=== PATIENT | male | born 1960 | race Caucasian/White ===

== ENCOUNTER 2021-01-26 12:18 | Emergency (ER) | payer OTHER ==
[2021-01-26] MEDS ORDERED: HYDROmorphone 1 MG/ML Syringe IM ONE (13:20)
--- NOTE | 2021-01-26 13:24 | EDM.PDOC ---
ED HPI GENERAL MEDICAL PROBLEM - General Chief Complaint: Lower Extremity Injury/Pain Stated Complaint: LEFT SIDE HIP PAIN Time Seen by Provider: 01/26/21 13:01 Source of Information: Reports: Patient, RN Notes Reviewed History Limitations: Reports: No Limitations - History of Present Illness INITIAL COMMENTS - FREE TEXT/NARRATIVE: Patient is a 61-year-old male who presents to the ED for evaluation of his left hip pain. Patient normally attends the [facility] for his medical issues however he notes he has been having left hip pain for about the last month, and he has no traumatic injury that would have caused this injury. He has been going to the chiropractor since then, and he states that the chiropractor seems to think that his tailbone is out of place. Patient notes that the area of pain is very pinpoint, to his left mid buttock, just lateral to the midline. He notes that this area always has pain, but does worsen with movement, when he gets up or sits down. He is not having any numbness or tingling or any pain down his legs. He states that the chiropractor helps for the day, but then the pain just returns. He has been using hydrocodone 10 mg tablets for the pain, with little relief. He tried to call the [facility] for an appointment today however they told him he should come to the ER as he could have a "septic hip". He denies any fevers or chills, cough or shortness of breath, nausea/vomiting/diarrhea. Patient denies any previous surgeries to this hip. Left Hip Pain Score (Numeric/FACES): 6 - Related Data Allergies Allergy/AdvReac Type Severity Reaction Status Date / Time No Known Allergies Allergy Verified 01/26/21 13:05 Home Meds: Home Meds oxyCODONE HCl/Acetaminophen [Oxycodone-Acetaminophen 5-325] 1 each PO Q6H PRN #20 tablet 01/26/21 [Rx] Past Medical History HEENT History: Reports: Impaired Vision Cardiovascular History: Reports: High Cholesterol, Hypertension Respiratory History: Reports: Sleep Apnea Gastrointestinal History: Reports: Chronic Diarrhea Genitourinary History: Reports: Retention, Urinary Psychiatric History: Reports: Addiction Oncologic (Cancer) History: Reports: Colon - Past Surgical History GI Surgical History: Reports: Hernia Repair/Other, Other (See Below) Other GI Surgeries/Procedures: Colon Surgery Social & Family History - Tobacco Use Tobacco Use Status *Q: Never Tobacco User - Caffeine Use Caffeine Use: Reports: Coffee - Recreational Drug Use Recreational Drug Use: Yes Recreational Drug Type: Reports: Marijuana/Hashish Review of Systems - Review of Systems Review Of Systems: Comprehensive ROS is negative, except as noted in HPI. ED EXAM, GENERAL - Physical Exam Exam: See Below Exam Limited By: No Limitations General Appearance: Alert, WD/WN, No Apparent Distress Respiratory/Chest: No Respiratory Distress, Lungs Clear, Normal Breath Sounds, No Accessory Muscle Use, Chest Non-Tender Cardiovascular: Normal Peripheral Pulses, Regular Rate, Rhythm, No Edema Peripheral Pulses: 2+: Radial (L), Radial (R) Extremities: Normal Inspection, Normal Range of Motion, Normal Capillary Refill Neurological: Alert, Oriented, Normal Cognition, No Motor/Sensory Deficits Psychiatric: Normal Affect, Normal Mood Skin Exam: Warm, Dry, Intact, Normal Color, No Rash Course - Vital Signs Last Recorded V/S: Last Vital Signs Temp 97.1 F 01/26/21 13:01 Pulse 63 01/26/21 13:01 Resp 16 01/26/21 13:01 BP 123/64 01/26/21 13:01 Pulse Ox 99 01/26/21 13:01 - Orders/Labs/Meds Meds: Medications Discontinued Medications Generic Name Dose Route Start Last Admin Trade Name Marla PRN Reason Stop Dose Admin Hydromorphone HCl 1 mg 01/26/21 13:20 01/26/21 13:47 Dilaudid IM 01/26/21 13:21 1 mg ONETIME ONE Administration - Re-Assessments/Exams Free Text/Narrative Re-Assessment/Exam: 01/26/21 13:24 Patient presents to the ED for the evaluation of his left hip pain, for today's purposes we will go ahead and get hip and pelvis x-rays, and give the gentleman a 1 mg injection of Dilaudid for pain management. 01/26/21 14:15 The patient's x-rays demonstrate diffuse joint space narrowing within the left hip, sacroiliac joints are normal. No acute fracture or dislocation is seen. It does appear the patient suffering from arthritis causing his pain. I will go ahead and refer him to Dr. Tinsley for the possibility of injections to the site of his pain. He will be sent home with a prescription for oxycodone 5 mg for ongoing pain management as he notes that he was not getting much relief from the [facility]codone 10 mg tablets that [facility]. Departure - Departure Time of Disposition: 14:18 Disposition: Home, Self-Care 01 Condition: Good Clinical Impression: Hip pain, left, Arthritis of left hip - Discharge Information *PRESCRIPTION DRUG MONITORING PROGRAM REVIEWED*: No *COPY OF PRESCRIPTION DRUG MONITORING REPORT IN PATIENT ORLIN: No Instructions: Arthritis, [id number], Pain Medicine Instructions, [id number] Referrals: Kev Tinsley MD [Physician] - 1 Week (for possible left hip injection) Forms: ED Department Discharge Additional Instructions: You were evaluated in the ER today for your left hip pain. X-rays demonstrated that you do have some arthritis in your left hip, which is likely the source of your pain. Recommend you take 625 mg Tylenol or 6 of milligrams ibuprofen every 6 hours as needed for further pain relief, do not exceed 4000 mg Tylenol or 3200 mg ibupr ofen in a 24-hour time span. You were given a prescription for a strong pain medication, oxycodone/acetaminophen 5/325 mg, please take 1 tab every 6 hours as needed for pain not relieved by Tylenol or ibuprofen alone. Please note this medication does contain Tylenol in it, so do not take more than 4000 mg in a 24-hour time span. These medications can be addictive, so please take as few as possible to achieve adequate pain control. These meds can also be quite constipating, recommend that you increase your oral fluid intake and take a stool softener like MiraLAX while taking these medications. Do not drive while taking this medication. You have been given a referral to our global marketing specialist, Dr. Tinsley, for the possibility of hip injections. Due to you being a part of the [facility], you may have to call them and tell them that you received a referral to an global marketing specialist, for hip injections. They might have to do some prior authorizations and order the for this to be covered through the [facility]. Dr. Tinsley's office number is [phone], you may call his office, to set up an appointment to get this scheduled or have the [facility] do it if they need to provide prior authorization. Please do not hesitate to return to the ER at any time if symptoms change or worsen. Sepsis Event Note (ED) - Evaluation Sepsis Screening Result: No Definite Risk - Focused Exam Vital Signs: Vital Signs Temp Pulse Resp BP Pulse Ox 01/26/21 13:01 97.1 F 63 16 123/64 99
--- NOTE | 2021-01-26 13:51 | CR ---
Pelvis and left hip: AP view of the pelvis was obtained as well as AP and frog-leg lateral view of the left hip. Comparison: No previous study is noted. Diffuse joint space narrowing is seen with the left hip. Joint space of the right hip is fairly well preserved. Sacroiliac joints are normal. No acute fracture or dislocation is seen. Impression: 1. Diffuse joint space narrowing with the left hip. 2. No additional abnormality is seen. Diagnostic code #2
== END 2021-01-26 14:38 | disposition home or self-care (01) ==
LOC: JD.ED 12:18
DX: M16.12 Unilateral primary osteoarthritis, left hip (principal); I10 Essential (primary) hypertension
CPT/HCPCS: 73502-26-LT; 73502-LT; 96372; 99283; J1170

== ENCOUNTER 2022-05-10 06:47 | Emergency (ER) | payer OTHER ==
[2022-05-10] MEDS ORDERED: Sodium Chloride 0.9% 10 ML Syringe FLUSH PRN ×2 (07:10→07:13)
[2022-05-10] MEDS ORDERED: HYDROmorphone 1 MG/ML Syringe IVPUSH ONE ×2 (07:11→08:46)
[2022-05-10] MEDS ORDERED: Iopamidol 755 Mg/ML 100 ML Bottle IVPUSH ONE (07:13)
[2022-05-10] MEDS ORDERED: Sodium Chloride 0.9% 100 ML IV SCH (07:15)
== END 2022-05-10 10:13 | disposition home or self-care (01) ==
LOC: JD.ED 06:47
DX: M25.512 Pain in left shoulder (principal); M54.2 Cervicalgia; E78.00 Pure hypercholesterolemia, unspecified; I10 Essential (primary) hypertension; Z79.01 Long term (current) use of anticoagulants; Z87.891 Personal history of nicotine dependence
CPT/HCPCS: 36415; 71275; 80053; 84484; 85025; 85379; 93005; 96361; 96374; 96376; 99285; J1170; J3490; Q9967

== ENCOUNTER 2023-12-17 12:57 | Emergency (ER) | payer OTHER ==
[2023-12-17 13:41] LABS: BASOPHILS ABSOLUTE AUTO 0.1 K/mm3 (0.0-0.2); BASOPHILS PERCENT AUTO 0.7 % (0.0-1.0); EOSINOPHILS ABSOLUTE AUTO 0.2 K/mm3 (0.0-0.4); EOSINOPHILS PERCENT AUTO 1.7 % (0.0-6.0); HEMATOCRIT 44.6 % (42.0-52.0); HEMOGLOBIN 16.2 gm/dl (14.0-18.0); IMMATURE GRAN ABSOLUTE AUTO 0.03 K/mm3 (0.00-0.05); IMMATURE GRAN PERCENT AUTO 0.3 % (0.0-0.4); LYMPHOCYTES ABSOLUTE AUTO 1.9 K/mm3 (1.0-4.8); LYMPHOCYTES PERCENT AUTO 16.5 % (24.0-44.0); MEAN CORPUSCULAR HGB CONC 36.3 g/dl (32.0-36.0); MEAN CORPUSCULAR VOLUME 82.6 fl (83.0-99.0); MONOCYTES ABSOLUTE AUTO 0.9 K/mm3 (0.0-0.8); MONOCYTES PERCENT AUTO 7.7 % (0.0-8.0); NEUTROPHILS ABSOLUTE AUTO 8.2 K/mm3 (1.8-7.7); NEUTROPHILS PERCENT AUTO 73.1 % (41.0-71.0); PLATELET COUNT,PLT 244 K/mm3 (150-400); WHITE BLOOD CELL COUNT,WBC 11.25 K/mm3 (3.9-11.3)
[2023-12-17 14:04] LABS: A/G RATIO 0.8 (1-2); ALANINE AMINOTRANSFERASE,ALT 25 U/L (16-63); ALBUMIN 3.6 g/dl (3.4-5.0); ALKALINE PHOSPHATASE 98 U/L (46-116); ANION GAP 17.1 (5-15); ASPARTATE AMNIOTRANSFERASE,AST 19 U/L (15-37); BLOOD UREA NITROGEN,BUN 20 mg/dL (7-18); BUN/CREATININE RATIO 22.2 (14-18); CALCIUM 9.1 mg/dL (8.5-10.1); CARBON DIOXIDE,CO2 21 mEq/L (21-32); CHLORIDE,CL 98 mEq/L (98-107); CREATININE 0.9 mg/dL (0.7-1.3); ESTIMATED GFR 95 mL/min (>60); GLUCOSE RANDOM 115 mg/dL (70-99); INR 1.07; POTASSIUM,K 4.1 mEq/L (3.5-5.1); PROTEIN TOTAL,TP 7.9 g/dl (6.4-8.2); PROTHROMBIN TIME 11.4 SECONDS (9.7-12.0); SODIUM,NA 132 mEq/L (136-145); TROPONIN I HIGH SENSITIVITY 4 pg/mL (<=76)
[2023-12-17 14:05] LABS: PTT,PARTIAL THROMBOPLSTIN TIME 29.6 SECONDS (21.7-31.4)
== END 2023-12-17 15:34 | disposition home or self-care (01) ==
LOC: JD.ED 12:57
DX: H81.4 Vertigo of central origin (principal); I10 Essential (primary) hypertension; Z79.01 Long term (current) use of anticoagulants
CPT/HCPCS: 36415; 70450; 70450-26; 80053; 82947; 84484; 85025; 85610; 85730; 93005; 93010; 99284

== ENCOUNTER 2025-03-14 15:37 | Emergency (ER) | payer OTHER ==
[2025-03-14] MEDS ORDERED: Sodium Chloride 0.9% 10 ML Syringe FLUSH PRN (16:05)
[2025-03-14] MEDS: Sodium Chloride 0.9% 1,000 ML IV STA (16:20)
[2025-03-14] MEDS: Ondansetron 4 MG/2 ML SDV IVPUSH ONE (16:20)
[2025-03-14] MEDS: HYDROmorphone 0.5 MG/0.5 ML Syringe IVPUSH ONE ×3 (16:21→20:14)
[2025-03-14 16:26] LABS: BASOPHILS ABSOLUTE AUTO 0.1 K/mm3 (0.0-0.2); BASOPHILS PERCENT AUTO 0.4 % (0.0-1.0); EOSINOPHILS ABSOLUTE AUTO 0.1 K/mm3 (0.0-0.4); EOSINOPHILS PERCENT AUTO 0.5 % (0.0-6.0); HEMATOCRIT 48.3 % (42.0-52.0); HEMOGLOBIN 16.9 gm/dl (14.0-18.0); IMMATURE GRAN PERCENT AUTO 0.5 % (0.0-0.4); LYMPHOCYTES ABSOLUTE AUTO 2.3 K/mm3 (1.0-4.8); LYMPHOCYTES PERCENT AUTO 11.8 % (24.0-44.0); MEAN CORPUSCULAR HEMOGLOBIN 30.4 pg (28.0-32.0); MEAN CORPUSCULAR VOLUME 86.9 fl (83.0-99.0); MEAN PLATELET VOLUME 9.7 fl (9.4-12.4); MONOCYTES ABSOLUTE AUTO 1.2 K/mm3 (0.0-0.8); NEUTROPHILS ABSOLUTE AUTO 15.5 K/mm3 (1.8-7.7); NEUTROPHILS PERCENT AUTO 80.8 % (41.0-71.0); RED BLOOD CELL COUNT 5.56 M/mm3 (4.52-5.90); WHITE BLOOD CELL COUNT,WBC 19.17 K/mm3 (3.9-11.3)
[2025-03-14] MEDS: Sodium Chloride 0.9% 10 ML Syringe FLUSH ONE (16:55)
[2025-03-14] MEDS: Iopamidol 612 MG/ML 100 ML Bottle IVPUSH ONE (16:55)
[2025-03-14 17:13] LABS: PLATELET COUNT,PLT 376 K/mm3 (150-400)
[2025-03-14 17:28] LABS: A/G RATIO 0.8 (1-2); ALBUMIN 3.4 g/dl (3.4-5.0); ANION GAP 13.4 (5-15); BILIRUBIN TOTAL 1.5 mg/dL (0.2-1.0); BUN/CREATININE RATIO 17.3 (14-18); CALCIUM 9.1 mg/dL (8.5-10.1); CREATININE 1.1 mg/dL (0.7-1.3); EST CRCL DRUG DOSING (CG) 72.51 mL/min; POTASSIUM,K 4.4 mEq/L (3.5-5.1); PROTEIN TOTAL,TP 7.5 g/dl (6.4-8.2)
[2025-03-14 18:15] LABS: APPEARANCE,URINE CLEAR (Clear); BILIRUBIN,URINE NEGATIVE (Negative); COLOR,URINE YELLOW (Yellow); GLUCOSE,URINE NEGATIVE (Negative); KETONES,URINE 1+ (Negative); LEUKOCYTE ESTERASE,URINE NEGATIVE (Negative); NITRITE,URINE NEGATIVE (Negative); OCCULT BLOOD,URINE TRACE-INTACT (Negative); PROTEIN,URINE 1+ (Negative); UROBILINOGEN,URINE 0.2 (0.2-1.0)
[2025-03-14 18:25] LABS: BACTERIA,URINE FEW /hpf (FEW); EPITHELIAL CELLS,URINE 0-5 /hpf (0-5); MUCUS,URINE FEW /hpf (FEW); RBC,URINE 0-5 /hpf (0-5); WBC,URINE 0-5 /hpf (0-5)
[2025-03-14] MEDS: Benzocaine 20% Topical Spray UD MUCMEM ONE (18:51)
[2025-03-14] MEDS: Benzocaine 20% Oral Spray 59.2 ML Canister MUCMEM ONE (18:52)
[2025-03-14] MEDS: Lactated Ringers 1,000 ML IV SCH (20:14)
== END 2025-03-14 21:00 ==
LOC: JD.ED 15:37
DX: K56.609 Unspecified intestinal obstruction, unspecified as to partial versus complete obstruction (principal); I48.91 Unspecified atrial fibrillation; E78.00 Pure hypercholesterolemia, unspecified; I10 Essential (primary) hypertension; Z79.01 Long term (current) use of anticoagulants; Z79.899 Other long term (current) drug therapy
CPT/HCPCS: 36415; 74177; 80053; 81001; 83605; 83690; 85025; 96361; 96374; 96375; 96376; 99285; A9270; J2405; J7030; J7120; Q9967